=== PATIENT | female | born 1975 | race Hispanic/Latino ===

== ENCOUNTER 2021-12-12 05:02 | Emergency (ER) | payer OTHER ==
[~2021-12-12] VITALS: Ht 154.9 cm; Wt 71.7 kg
[2021-12-12] MEDS ORDERED: LORAZEPAM 2 MG/ML 1 ML VIAL IVP ONE (05:30)
[2021-12-12] MEDS ORDERED: ASPIRIN 81MG CHEW TAB PO ONE (05:30)
[2021-12-12 06:06] LABS: BASOPHILS % (AUTO) 0.4 % (0.0-5.0); EOSINOPHILS % (AUTO) 3.4 % (0.0-8.0); HEMATOCRIT 40.7 % (36-48); LYMPHOCYTES % (AUTO) 36.7 % (21.0-51.0); MEAN CORPUSCULAR HEMOGLOBIN 28.3 pg (27.0-33.0); MEAN CORPUSCULAR HGB CONC 32.9 g/dL (32.0-36.0); MEAN CORPUSCULAR VOLUME 85.9 fL (79-99); MONOCYTES % (AUTO) 7.2 % (3.0-13.0); PLATELET COUNT (AUTO) 256 K/uL (130-400); RED BLOOD CELL COUNT(AUTO) 4.74 MIL/uL (4.00-5.50); WHITE BLOOD COUNT (AUTO) 12.8 K/uL (4.8-10.8)
[2021-12-12 06:10] LABS: CREATININE 0.8 mg/dL (0.5-1.5)
[2021-12-12 06:11] VITALS: BP 127/74
[2021-12-12] MEDS ORDERED: HYDR25CA PO (06:31)
== END 2021-12-12 06:39 | disposition home or self-care (01) ==
LOC: EDH 05:02
DX: F41.0 Panic disorder [episodic paroxysmal anxiety] (principal); R07.89 Other chest pain; Z79.82 Long term (current) use of aspirin
CPT/HCPCS: 36415; 71045; 80048; 84484; 85025; 93005; 96374; 99285; J2060